=== PATIENT | female | born 1955 | race Caucasian/White ===

== ENCOUNTER 2024-02-17 08:28 | Inpatient (IN) | payer MEDICARE, OTHER ==
[~2024-02-17] VITALS: Ht 160 cm; Wt 63.5 kg
[2024-02-17] MEDS ORDERED: FAMOTIDINE/PF INJ 20 MG/2 ML VIAL IV ONE (11:12)
[2024-02-17] MEDS ORDERED: FENTANYL PF 100MCG/2ML AMPUL ONE (11:12)
[2024-02-17] MEDS ORDERED: OXYMETAZOLINE HCL NASAL SPRAY 30 ML BOTTLE NS ONE (11:12)
[2024-02-17] MEDS ORDERED: LIDOCAINE 2% JEL UROJET 10 ML MM ONE (11:12)
[2024-02-17] MEDS ORDERED: KETAMINE HCL (500MG/10ML) 50 MG/ML VIAL ONE (11:13)
[2024-02-17] MEDS ORDERED: ROCURONIUM BROMIDE 50 MG/5 ML ONE (11:13)
[2024-02-17] MEDS ORDERED: dexaMETHasone SOD PHOSPHATE 2 ML ONE (11:17)
[2024-02-17] MEDS ORDERED: VANCOMYCIN 1 GM VIAL ONE (11:17)
[2024-02-17] MEDS ORDERED: LIDOCAINE 2%-EPI 1:100,000 30 ML VIAL ONE (11:17)
[2024-02-17] MEDS ORDERED: SEVOFLURANE 250 ML BOTTLE IH ONE (11:51)
[2024-02-17] MEDS ORDERED: LORA-258 PO (15:33)
[2024-02-17] MEDS ORDERED: BUPR150T5 PO (15:33)
[2024-02-17] MEDS ORDERED: ASPI-1420 PO (15:33)
[2024-02-17] MEDS ORDERED: ESOM40CA PO (15:33)
[2024-02-17] MEDS ORDERED: AMLO5TAB4 PO (15:33)
[2024-02-17 16:00] VITALS: BP 129/86; TEMP 97.9; O2SAT 96
[2024-02-17] MEDS ORDERED: HYDROMORPHONE 1 MG/1 ML DISP.SYRIN IV PRN (16:00)
[2024-02-17] MEDS ORDERED: ASPIRIN EC 81 MG TABLET.DR PO PRN (16:00)
[2024-02-17] MEDS ORDERED: LORAZEPAM 0.5 MG TABLET PO PRN (16:00)
[2024-02-17] MEDS ORDERED: IV 1/2NS 1000 ML 1,000 ML IV PRN (16:00)
[2024-02-17] MEDS ORDERED: ACETAMINOPHEN 325 MG TABLET PO PRN (16:00)
[2024-02-17] MEDS ORDERED: MORPHINE SULFATE INJ 2 MG/ML DISP.SYRIN IV PRN (16:30)
[2024-02-17] MEDS ORDERED: ONDANSETRON HCL/PF 4 MG/2 ML VIAL IVP PRN (16:30)
[2024-02-17] MEDS ORDERED: hydrALAZINE HCL IV 20 MG VIAL IV PRN (16:30)
[2024-02-17] MEDS: ACETAMINOPHEN 325 MG TABLET PO PRN (17:57)
[2024-02-17] MEDS: ONDANSETRON HCL/PF 4 MG/2 ML VIAL IVP PRN (19:56)
[2024-02-17] MEDS: VANCOMYCIN 1 GM in IV D5W 250ml IV SCH (22:26)
[2024-02-18 06:59] LABS: HEMATOCRIT 35 % (33-45); LYMPHOCYTES # (AUTO) 0.8 K/uL (0.8-4.8); LYMPHOCYTES % (AUTO) 8.1 % (20.0-44.0); MEAN CORPUSCULAR HEMOGLOBIN 30 PG (26.0-33.0); MEAN CORPUSCULAR HGB CONC 34 g/dl (31.0-36.0); MEAN CORPUSCULAR VOLUME 87 fL (82-100); MONOCYTES # (AUTO) 0.3 K/uL (0.1-1.30); MONOCYTES % (AUTO) 2.7 % (2.0-12.0); NEUTROPHILS # (AUTO) 8.4 K/uL (1.8-8.9); NEUTROPHILS % (AUTO) 89.2 % (43.0-81.0); PLATELET COUNT (AUTO) 246 K/uL (150-450); RED BLOOD CELL COUNT(AUTO) 4.03 MIL/uL (4.0-5.2); RED CELL DISTRIBUTION WIDTH 12.9 % (11.5-15.0); WHITE BLOOD COUNT (AUTO) 9.5 K/uL (4.3-11.0)
[2024-02-18 07:12] LABS: ALBUMIN 2.9 g/dL (3.4-5.0); BILIRUBIN,TOTAL 0.6 mg/dL (0.2-1.0); CREATININE 0.9 mg/dL (0.6-1.3); MAGNESIUM 2.1 mg/dL (1.8-2.4); PHOSPHORUS 3.2 mg/dL (2.5-4.9); POTASSIUM 3.9 mmol/L (3.5-5.1); TOTAL PROTEIN, SERUM 7.2 g/dL (6.4-8.2)
[2024-02-18 08:00] VITALS: BP 122/73; TEMP 98.2; O2SAT 98
[2024-02-18 08:56] VITALS: BP 124/73
[2024-02-18] MEDS: PANTOPRAZOLE 40 MG TABLET.DR PO SCH (08:56)
[2024-02-18] MEDS: AMLODIPINE BESYLATE 5 MG TABLET PO SCH (08:56)
[2024-02-18] MEDS: buPROPion SR 150 MG TABLET.ER PO SCH (08:57)
== END 2024-02-18 13:00 | disposition home or self-care (01) | DRG 516 ==
LOC: DS 08:28 → MED 14:53
PROVIDERS: ADMIT Internal Medicine; ATTEND Internal Medicine
PROC: 0NBV0ZZ Excision of Left Mandible, Open Approach (ICD-10-PCS; principal; 2024-02-17)
PROC: 0NSR04Z Reposition Maxilla with Internal Fixation Device, Open Approach (ICD-10-PCS; 2024-02-17)
PROC: 0NUV07Z Supplement Left Mandible with Autologous Tissue Substitute, Open Approach (ICD-10-PCS; 2024-02-17)
PROC: 0NUR07Z Supplement Maxilla with Autologous Tissue Substitute, Open Approach (ICD-10-PCS; 2024-02-17)
PROC: 0NUR0JZ Supplement Maxilla with Synthetic Substitute, Open Approach (ICD-10-PCS; 2024-02-17)
PROC: 0NBR0ZX Excision of Maxilla, Open Approach, Diagnostic (ICD-10-PCS; 2024-02-17)
DX: S02.609K Fracture of mandible, unspecified, subsequent encounter for fracture with nonunion (principal); M87.88 Other osteonecrosis, other site; M27.2 Inflammatory conditions of jaws; X58.XXXD Exposure to other specified factors, subsequent encounter; Z79.82 Long term (current) use of aspirin; Z79.899 Other long term (current) drug therapy; D16.5 Benign neoplasm of lower jaw bone; S02.40DK Maxillary fracture, left side, subsequent encounter for fracture with nonunion; Z88.0 Allergy status to penicillin; S02.40CK Maxillary fracture, right side, subsequent encounter for fracture with nonunion; K21.9 Gastro-esophageal reflux disease without esophagitis; I10 Essential (primary) hypertension; F41.9 Anxiety disorder, unspecified; J32.0 Chronic maxillary sinusitis
CPT/HCPCS: 36415; 80053-TC; 83735-TC; 84100-TC; 85025-TC; 88305-TC; 88311-TC; 88312-TC; A4223; C1713; G0378; J1100; J2405; J2704; J2765; J3010; J3370; J3490; J7030; J7050; J7060

== ENCOUNTER 2024-07-13 07:35 | Inpatient (IN) | payer MEDICARE, OTHER ==
[~2024-07-13] VITALS: Ht 160 cm; Wt 68.0 kg
[~2024-07-13 07:35] MED LIST: AMLO5TAB4 PO; ASPI-1420 PO; BUPR150T5 PO; ESOM40CA PO; LORA-258 PO
[2024-07-13] MEDS ORDERED: LIDOCAINE 2%-EPI 1:100,000 30 ML VIAL ONE (09:48)
[2024-07-13] MEDS ORDERED: dexaMETHasone SOD PHOSPHATE 2 ML ONE (09:49)
[2024-07-13] MEDS ORDERED: VANCOMYCIN 1 GM VIAL ONE (09:49)
[2024-07-13] MEDS: IV NS 0.9% 1,000 ML IV PRN (12:55)
[2024-07-13] MEDS: HYDROMORPHONE 1 MG/1 ML DISP.SYRIN IV PRN (12:59)
[2024-07-13] MEDS ORDERED: ONDANSETRON HCL/PF 4 MG/2 ML VIAL IV PRN (13:00)
[2024-07-13] MEDS ORDERED: ERGO500093 PO (16:29)
[2024-07-13] MEDS ORDERED: VOQUEZNA PO (16:29)
[2024-07-13] MEDS ORDERED: ASPIRIN EC 81 MG TABLET.DR PO PRN (16:30)
[2024-07-13] MEDS ORDERED: MAGNESIUM HYDROXIDE 30 ML UDC PO PRN (16:30)
[2024-07-13] MEDS ORDERED: ONDANSETRON HCL/PF 4 MG/2 ML VIAL IVP PRN (16:30)
[2024-07-13] MEDS ORDERED: ZOLPIDEM TARTRATE 5 MG TABLET PO PRN (16:30)
[2024-07-13] MEDS ORDERED: LORAZEPAM 0.5 MG TABLET PO PRN (16:30)
[2024-07-13] MEDS ORDERED: ACETAMINOPHEN 325 MG TABLET PO PRN (16:30)
[2024-07-13] MEDS ORDERED: Z GUARD REMEDY 4 OZ OINT TP PRN (16:30)
[2024-07-13 20:00] VITALS: BP_SYST 128; BP_SYST 129; BP_DIAS 61; BP_DIAS 81; TEMP 97.7; O2SAT 95; O2SAT 96
[2024-07-13] MEDS: MAG HYDROX/AL HYDROX/SIMETH 30 ML UDC PO PRN (21:10)
[2024-07-14 08:00] VITALS: BP 115/67; TEMP 98.1; O2SAT 97
[2024-07-14 08:52] VITALS: BP 115/67
[2024-07-14] MEDS: AMLODIPINE BESYLATE 5 MG TABLET PO SCH (08:52)
[2024-07-14] MEDS: buPROPion SR 150 MG TABLET.ER PO SCH (08:52)
[2024-07-14] MEDS: PANTOPRAZOLE 40 MG TABLET.DR PO SCH (08:52)
[2024-07-14 09:37] LABS: BASOPHILS % (AUTO) 0.1 % (0.0-2.0); HEMATOCRIT 36 % (33-45); HEMOGLOBIN 12.1 g/dL (11.5-14.8); LYMPHOCYTES # (AUTO) 1.1 K/uL (0.8-4.8); MEAN CORPUSCULAR HEMOGLOBIN 29 PG (26.0-33.0); MEAN CORPUSCULAR HGB CONC 33 g/dl (31.0-36.0); MEAN CORPUSCULAR VOLUME 87 fL (82-100); MONOCYTES # (AUTO) 0.6 K/uL (0.1-1.30); MONOCYTES % (AUTO) 4.5 % (2.0-12.0); NEUTROPHILS % (AUTO) 87.4 % (43.0-81.0); PLATELET COUNT (AUTO) 234 K/uL (150-450); RED BLOOD CELL COUNT(AUTO) 4.18 MIL/uL (4.0-5.2); RED CELL DISTRIBUTION WIDTH 14.1 % (11.5-15.0); WHITE BLOOD COUNT (AUTO) 13.7 K/uL (4.3-11.0)
[2024-07-14 09:51] LABS: CREATININE 0.9 mg/dL (0.6-1.3); PHOSPHORUS 3.4 mg/dL (2.5-4.9); POTASSIUM 4.2 mmol/L (3.5-5.1)
[2024-07-14 10:00] LABS: CALCIUM, SERUM 9.6 mg/dL (8.5-10.1)
[2024-07-14] MEDS: ACETAMINOPHEN 325 MG TABLET PO PRN (11:48)
[2024-07-14] MEDS ORDERED: PANT40TA49 PO (12:03)
== END 2024-07-14 12:45 | disposition home or self-care (01) | DRG 908 ==
LOC: DS 07:35 → MED 12:27
PROVIDERS: ADMIT Nurse Practitioner Acute Care; ATTEND Nurse Practitioner Acute Care
PROC: 0NPW04Z Removal of Internal Fixation Device from Facial Bone, Open Approach (ICD-10-PCS; principal; 2024-07-13)
PROC: 0N5R0ZZ Destruction of Maxilla, Open Approach (ICD-10-PCS; 2024-07-13)
PROC: 0N5V0ZZ Destruction of Left Mandible, Open Approach (ICD-10-PCS; 2024-07-13)
PROC: 0NPW07Z Removal of Autologous Tissue Substitute from Facial Bone, Open Approach (ICD-10-PCS; 2024-07-13)
PROC: 0NSV04Z Reposition Left Mandible with Internal Fixation Device, Open Approach (ICD-10-PCS; 2024-07-13)
DX: T86.831 Bone graft failure (principal); S02.40CK Maxillary fracture, right side, subsequent encounter for fracture with nonunion; S02.609K Fracture of mandible, unspecified, subsequent encounter for fracture with nonunion; T84.69XA Infection and inflammatory reaction due to internal fixation device of other site, initial encounter; M27.2 Inflammatory conditions of jaws; Y92.009 Unspecified place in unspecified non-institutional (private) residence as the place of occurrence of the external cause; K21.9 Gastro-esophageal reflux disease without esophagitis; I10 Essential (primary) hypertension; Z88.0 Allergy status to penicillin; Z79.82 Long term (current) use of aspirin; Z79.899 Other long term (current) drug therapy; D16.4 Benign neoplasm of bones of skull and face; Y83.2 Surgical operation with anastomosis, bypass or graft as the cause of abnormal reaction of the patient, or of later complication, without mention of misadventure at the time of the procedure
CPT/HCPCS: 36415; 80048-TC; 83735-TC; 84100-TC; 85025-TC; A4223; A4338; C1713; G0378; J0461; J0690; J1100; J1171; J2704; J3370; J3490; J7030